=== PATIENT | male | born 1935 | race Caucasian/White ===

== ENCOUNTER 2017-06-07 00:30 | Emergency (ER) | payer MEDICARE ==
[2017-06-07] MEDS ORDERED: Aspirin Low Dose CHEW TAB* 81 MG PO ONE (00:49)
[2017-06-07 01:24] LABS: Hematocrit 46 % (42-52); Hemoglobin 15.8 g/dl (14.0-18.0); Mean Corpuscular HGB Conc 34 g/dl (31-36); Mean Corpuscular Hemoglobin 33 pg (27-31); Mean Corpuscular Volume 96 fL (80-94); Mean Platelet Volume 8 um3 (7.4-10.4); Red Blood Count 4.83 10^6/ul (4.0-5.4); Red Cell Distribution Width 13 % (10.5-15); White Blood Count 6.3 10^3/ul (3.5-10.8)
[2017-06-07 01:31] LABS: Albumin 4.1 g/dL (3.2-5.2); BUN/Creatinine Ratio 19.1 (8-20); EGFR African American 64.4 (>60); Globulin 3.2 g/dL (2-4); Potassium 4.5 mmol/L (3.5-5.0); Total Bilirubin 0.7 mg/dL (0.2-1.0); Total Protein 7.3 g/dL (6.4-8.9)
[2017-06-07 01:35] LABS: Troponin I 0.01 ng/mL (<0.04)
[2017-06-07] MEDS ORDERED: Pantoprazole IV* 40 MG IV ONE (03:12)
[2017-06-07 04:43] VITALS: BP 129/79
--- NOTE | 2017-06-07 07:52 | RAD ---
INDICATION: Chest pain COMPARISON: Chest x-ray June 15, 2015 TECHNIQUE: An AP portable view obtained at 0111 hours is submitted. FINDINGS: Bones/Soft Tissues: There are no acute bony findings. Cardiomediastinal: The cardiomediastinal silhouette is normal. Lungs: There is minor linear change left lung base most consistent with scarring or atelectasis. Suggest follow-up as indicated.. Pleura: There are no pleural effusions. Other: None IMPRESSION: MINOR LINEAR CHANGE LEFT LUNG BASE LIKELY ATELECTASIS OR SCARRING
--- NOTE | 2017-06-07 14:32 | ED ---
Josie Almanza Rebecca, scribed for Mare Burroughs MD on 06/07/17 at 0227 . HPI Chest Pain - HPI Summary HPI Summary: Pt is an 81 y/o M who presents to ED c/o CP. Pain began 4 days ago (Saturday) and has been intermittent since onset with the most recent bout beginning tonight at 1700 shortly after finishing eating. Upon triage, pain was moderate, ranked 6 /10 and had been constant since onset. Upon evaluation, the pain has completely resolved with the only treatment being ASA. Pain has been midsternal without radiation. Pt repotrs an increase in belching. Denies abdominal pain. PSHx cardiac catheterizing without further intervention several years ago. PMHx GERD - previously was on omeprazole, but for the past week the pt has been taking Ranitidine 150 mg BID. Current sx are similar to prior instances of GERD. No PMHx MT. 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 Is on Coumadin due to PMHx DVT because he was on it before, taken off and they returned. Takes 5 mg Proscar, Atorvastatin 20 mg, Warfarin 6 mg, Tansulosin and ranitidine. - History of Current Complaint Chief Complaint: EDChestPainROMI Time Seen by Provider: 06/07/17 00:49 Hx Obtained From: Patient Onset/Duration: Started Days Ago - 4 days, Still Present, Worse Since - 1700 Time of Onset: 17:00 Timing: Intermittent Initial Severity: Moderate - 6/10 Current Severity: None Pain Intensity: 0 Pain Scale Used: 0-10 Numeric Chest Pain Location: Mid Sternal Aggravating Factor(s): Nothing Alleviating Factor(s): Other: - ASA Associated Signs and Symptoms: Negative: Abdominal Pain - Allergy/Home Medications Allergies/Adverse Reactions: Allergies Allergy/AdvReac Type Severity Reaction Status Date / Time No Known Allergies Allergy Verified 06/07/17 00:35 Home Medications: Home Medications Finasteride TAB* [Proscar TAB*] 5 mg PO DAILY 06/07/17 [History Confirmed ] Ranitidine HCl [Eql Heartburn Relief Maxi] 150 mg PO BID 06/07/17 [History Confirmed 06/07/17] Warfarin TAB(*) [Coumadin TAB(*)] 1 mg PO SEE INSTRUCTIONS 06/07/17 [History Confirmed 06/07/17] PMH/Surg Hx/FS Hx/Imm Hx Cardiovascular History: Reports: Hx Deep Vein Thrombosis GI History: Reports: Hx Gastroesophageal Reflux Disease - Surgical History Surgery Procedure, Year, and Place: Herniorrhaphies Infectious Disease History: No Infectious Disease History: Reports: Hx Shingles Denies: Traveled Outside the [place] in Last 30 Days - Family History Known Family History: Positive: Cardiac Disease - Father - Social History Alcohol Use: None Substance Use Type: Reports: None Smoking Status (MU): Never Smoked Tobacco Review of Systems Positive: Chest Pain Positive: Other - Belching. Negative: Abdominal Pain Physical Exam Triage Information Reviewed: Yes Vital Signs On Initial Exam: Initial Vitals Temp Pulse Resp BP Pulse Ox 97.4 F 84 14 165/96 94 06/07/17 00:31 06/07/17 00:31 06/07/17 00:31 06/07/17 00:31 06/07/17 00:31 Vital Signs Reviewed: Yes Appearance: Positive: No Pain Distress, Well-Nourished, Ill-Appearing - Mildly Skin: Positive: Warm, Skin Color Reflects Adequate Perfusion Head/Face: Positive: Normal Head/Face Inspection Eyes: Positive: Conjunctiva Clear ENT: Positive: Normal ENT inspection Neck: Positive: Supple Respiratory/Lung Sounds: Positive: Clear to Auscultation, Breath Sounds Present , Other - No respiratory distress Cardiovascular: Positive: RRR, Pulses are Symmetrical in both Upper and Lower Extremities, Other - Brisk capillary refill. Negative: Murmur Abdomen Description: Positive: Nontender, Soft, Other: - Belching Bowel Sounds: Positive: Present Musculoskeletal: Positive: Strength/ROM Intact Neurological: Positive: Sensory/Motor Intact, Alert, Oriented to Person Place, Time, Facial Symmetry, Speech Normal Psychiatric: Positive: Normal - Jerman Coma Scale Coma Scale Total: 15 Diagnostics - Vital Signs Vital Signs Temp Pulse Resp BP Pulse Ox 06/07/17 01:11 93 06/07/17 00:31 97.4 F 84 14 165/96 94 - Laboratory Lab Results: Lab Results 06/07/17 06/07/17 06/07/17 Range/Units 01:05 01:05 01:05 WBC 6.3 (3.5-10.8) 10^3/ul RBC 4.83 (4.0-5.4) 10^6/ul Hgb 15.8 (14.0-18.0) g/dl Hct 46 (42-52) % MCV 96 H (80-94) fL MCH 33 H (27-31) pg MCHC 34 (31-36) g/dl RDW 13 (10.5-15) % Plt Count 166 (150-450) 10^3/ul MPV 8 (7.4-10.4) um3 Neut % (Auto) 57.9 (38-83) % Lymph % (Auto) 27.6 (25-47) % Sauk % (Auto) 9.0 (1-9) % Eos % (Auto) 4.6 (0-6) % Baso % (Auto) 0.9 (0-2) % Absolute Neuts (auto) 3.6 (1.5-7.7) 10^3/ul Absolute Lymphs (auto) 1.7 (1.0-4.8) 10^3/ul Absolute Monos (auto) 0.6 (0-0.8) 10^3/ul Absolute Eos (auto) 0.3 (0-0.6) 10^3/ul Absolute Basos (auto) 0.1 (0-0.2) 10^3/ul Absolute Nucleated RBC 0.01 10^3/ul Nucleated RBC % 0.1 INR (Anticoag Therapy) (0.89-1.11) APTT (26.0-36.3) seconds Sodium 136 (133-145) mmol/L Potassium 4.5 (3.5-5.0) mmol/L Chloride 101 (101-111) mmol/L Carbon Dioxide 28 (22-32) mmol/L Anion Gap 7 (2-11) mmol/L BUN 26 H (6-24) mg/dL Creatinine 1.36 H (0.67-1.17) mg/dL Est GFR ( Amer) 64.4 (>60) Est GFR (Non-Af Amer) 50.0 (>60) BUN/Creatinine Ratio 19.1 (8-20) Glucose 106 H (70-100) mg/dL Lactic Acid (0.5-2.0) mmol/L Calcium 9.0 (8.6-10.3) mg/dL Magnesium 2.0 (1.9-2.7) mg/dL Total Bilirubin 0.70 (0.2-1.0) mg/dL AST 20 (13-39) U/L ALT 16 (7-52) U/L Alkaline Phosphatase 132 H (34-104) U/L Total Creatine Kinase 68 (10-223) U/L CK-MB (CK-2) 1.7 (0.6-6.3) ng/mL Troponin I 0.01 (<0.04) ng/mL B-Natriuretic Peptide 38 ( - 100) pg/mL Total Protein 7.3 (6.4-8.9) g/dL Albumin 4.1 (3.2-5.2) g/dL Globulin 3.2 (2-4) g/dL Albumin/Globulin Ratio 1.3 (1-3) 06/07/17 06/07/17 Range/Units 01:05 01:05 WBC (3.5-10.8) 10^3/ul RBC (4.0-5.4) 10^6/ul Hgb (14.0-18.0) g/dl Hct (42-52) % MCV (80-94) fL MCH (27-31) pg MCHC (31-36) g/dl RDW (10.5-15) % Plt Count (150-450) 10^3/ul MPV (7.4-10.4) um3 Neut % (Auto) (38-83) % Lymph % (Auto) (25-47) % Sauk % (Auto) (1-9) % Eos % (Auto) (0-6) % Baso % (Auto) (0-2) % Absolute Neuts (auto) (1.5-7.7) 10^3/ul Absolute Lymphs (auto) (1.0-4.8) 10^3/ul Absolute Monos (auto) (0-0.8) 10^3/ul Absolute Eos (auto) (0-0.6) 10^3/ul Absolute Basos (auto) (0-0.2) 10^3/ul Absolute Nucleated RBC 10^3/ul Nucleated RBC % INR (Anticoag Therapy) 2.52 H (0.89-1.11) APTT 41.5 H (26.0-36.3) seconds Sodium (133-145) mmol/L Potassium (3.5-5.0) mmol/L Chloride (101-111) mmol/L Carbon Dioxide (22-32) mmol/L Anion Gap (2-11) mmol/L BUN (6-24) mg/dL Creatinine (0.67-1.17) mg/dL Est GFR ( Amer) (>60) Est GFR (Non-Af Amer) (>60) BUN/Creatinine Ratio (8-20) Glucose (70-100) mg/dL Lactic Acid 1.0 (0.5-2.0) mmol/L Calcium (8.6-10.3) mg/dL Magnesium (1.9-2.7) mg/dL Total Bilirubin (0.2-1.0) mg/dL AST (13-39) U/L ALT (7-52) U/L Alkaline Phosphatase (34-104) U/L Total Creatine Kinase (10-223) U/L CK-MB (CK-2) (0.6-6.3) ng/mL Troponin I (<0.04) ng/mL B-Natriuretic Peptide ( - 100) pg/mL Total Protein (6.4-8.9) g/dL Albumin (3.2-5.2) g/dL Globulin (2-4) g/dL Albumin/Globulin Ratio (1-3) Result Diagrams: 06/07/17 01:05 06/07/17 01:05 Lab Statement: Any lab studies that have been ordered have been reviewed, and results considered in the medical decision making process. - Radiology CXR Xray Interpretation: No Acute Changes - NAD Radiology Interpretation Completed By: ED Physician - EKG 0050 Cardiac Rate: NL - 69 bpm Ectopy: PVCs - one EKG Interpretation: Sinus arrhythmia, nl AV/IV CT, nl QTC, nl axis Re-Evaluation - Re-Evaluation First Eval Re-Evaluation Time: 04:28 Comment: Has been getting intermittent, short instances of pain. Second Eval Re-Evaluation Time: 04:35 Comment: Explaining results to the daughter of the pt, including negative troponin and EKG results. Discussed the medications the pt received in the ED as well as the need for a stress test but not urgently. Chest Pain Course/Dx - Course Assessment/Plan: Pt is an 81 y/o M who presents to ED c/o CP. Pain began 4 days ago (Saturday) and has been intermittent since onset with the most recent bout beginning tonight at 1700 shortly after finishing eating. Upon triage, pain was moderate, ranked 6/10 and had been constant since onset. Upon evaluation, the pain has completely resolved with the only treatment being ASA. Pain has been midsternal without radiation. Pt repotrs an increase in belching. Denies abdominal pain. PSHx cardiac catheterizing without further intervention several years ago. PMHx GERD - previously was on omeprazole, but for the past week the pt has been taking Ranitidine 150 mg BID. Current sx are similar to prior instances of GERD. No PMHx MT. 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 Is on Coumadin due to PMHx DVT because he was on it before, taken off and they returned. Takes 5 mg Proscar, Atorvastatin 20 mg, Warfarin 6 mg, Tansulosin and ranitidine. CXR reveals no acute findings. EKG is sinus arrythmia. In the ED course, pt received ASA and protonix. Both troponins of 0.01. Discussed care of pt with Dr. Lucero who stated that is the repeat troponin and D-Dimer are negative, the pt can be D/C to home for outpatient follow up. Patient medications reviewed. Elevated BP noted. - Diagnoses Provider Diagnoses: GERD (gastroesophageal reflux disease), Chest pain, Elevated BP without diagnosis of hypertension - Provider Notifications Discussed Care Of Patient With: Paul Lucero Time Discussed With Above Provider: 03:25 Instructed by Provider To: Other - If the second troponin and D-Dimer are negative, the pt can be D/C to home to have a stress test done soon as an outpatient. Discharge - Discharge Plan Condition: Stable Disposition: HOME Patient Education Materials: Gastroesophageal Reflux Disease (ED), Chest Pain ( ED) Referrals: Eduardo Rojas MD [Primary Care Provider] - Fabricio Johnson DO [Medical Doctor] - Additional Instructions: We gave 1 dose of Protonix 40 mg IV and we gave a copy of labs. 2 troponins and D-Dimer were both negative. Continue with usual medications. The documentation as recorded by the Josie denson Rebecca accurately reflects the service I personally performed and the decisions made by Manjeet cantu Barbara J, MD.
== END 2017-06-07 04:50 | disposition home or self-care (01) ==
LOC: ED 00:30
DX: R07.9 Chest pain, unspecified (principal); K21.9 Gastro-esophageal reflux disease without esophagitis; R03.0 Elevated blood-pressure reading, without diagnosis of hypertension
CPT/HCPCS: 36415; 71010; 80053; 82550; 82553; 83605; 83735; 83880; 84484; 85025; 85379; 85610; 85730; 93005; 96374; 99283; A9270-GY

== ENCOUNTER 2018-03-31 12:51 | Emergency (ER) | payer OTHER ==
[2018-03-31 13:05] VITALS: BP 139/81
--- NOTE | 2018-03-31 13:46 | UC ---
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 He states that he has an extremely low energy level and feels like falling asleep. He has had 3- 5 episodes of diarrhea day for the past 10 days. Denies any nausea vomiting or abdominal pain. He has had no fever or chills. He has had no chest pain or shortness of breath. His remarks that he has not been his normal self and generally refuses to see doctors. He is currently on Coumadin for DVTs. - History of Current Complaint Chief Complaint: UCGeneralIllness Stated Complaint: NOT FEELING RIGHT Time Seen by Provider: 03/31/18 13:15 Hx Obtained From: Patient Onset/Duration: Gradual Onset, Lasting Days - 10 Timing: Constant Severity Initially: Mild Severity Currently: Moderate Pain Intensity: 0 Pain Scale Used: 0-10 Numeric Associated Signs And Symptoms: Positive: Diarrhea. Negative: Diaphoresis, Fever , Cough, Chest Pain, Dizzy, Back Pain, Constipation, Blood in Stool, Urinary Symptoms, Decreased Appetite, Nausea, Vomiting, Penile Discharge - Allergies/Home Medications Allergies/Adverse Reactions: Allergies Allergy/AdvReac Type Severity Reaction Status Date / Time No Known Allergies Allergy Verified 03/31/18 12:59 Home Medications: Home Medications Omeprazole CAP* [Prilosec CAP* 20 MG] 1 cap DAILY 03/31/18 [History Confirmed ] PMH/Surg Hx/FS Hx/Imm Hx Previously Healthy: Yes Endocrine History: Dyslipidemia Cardiovascular History: Hypertension, Deep Vein Thrombosis - Surgical History Surgical History: Yes Surgery Procedure, Year, and Place: Herniorrhaphies - Family History Known Family History: Positive: Cardiac Disease - Father - Social History Alcohol Use: None Substance Use Type: None Smoking Status (MU): Never Smoked Tobacco - Immunization History Most Recent Influenza Vaccination: Not the 2014/2015 Season Review of Systems Constitutional: Fatigue Skin: Negative Eyes: Negative ENT: Negative Respiratory: Negative Cardiovascular: Negative Gastrointestinal: Diarrhea Genitourinary: Negative Motor: Negative Neurovascular: Negative Musculoskeletal: Negative Neurological: Negative Psychological: Negative Is Patient Immunocompromised?: No All Other Systems Reviewed And Are Negative: Yes Physical Exam Triage Information Reviewed: Yes Appearance: Well-Appearing, No Pain Distress, Well-Nourished Vital Signs: Initial Vital Signs Temp 97.7 F 03/31/18 13:00 Pulse 93 03/31/18 13:00 Resp 20 03/31/18 13:00 BP 139/81 03/31/18 13:00 Pulse Ox 97 03/31/18 13:00 Vital Signs Reviewed: Yes Eyes: Positive: Conjunctiva Clear ENT: Positive: Hearing grossly normal. Negative: Nasal congestion, Nasal drainage, Trismus, Muffled voice, Hoarse voice Neck: Positive: Supple, Nontender, No Lymphadenopathy Respiratory: Positive: Lungs clear, Normal breath sounds, No respiratory distress, No accessory muscle use Cardiovascular: Positive: RRR, No Murmur Abdomen Description: Positive: Nontender, No Organomegaly, Soft. Negative: Bruit, CVA Tenderness (R), CVA Tenderness (L), Distended, Guarding Bowel Sounds: Positive: Present Musculoskeletal: Positive: ROM Intact, No Edema Neurological: Positive: Alert Psychological Exam: Normal Skin Exam: Normal Diagnostics - Laboratory Diagnostic Studies Completed/Ordered: ua-no glucose - EKG Cardiac Rate: NL Cardiac Rhythm: Sinus: Normal Ectopy: PVCs ST Segment: Normal Abd Pain Male Course/Dx - Course Course Of Treatment: D/W Dr. Guillory [facility]. accepts patient. declines EMS transfer - Differential Dx/Clinical Impression Provider Diagnoses: fatige/diarrhea Discharge - Sign-Out/Discharge Documenting (check all that apply): Patient Departure - Discharge Plan Condition: Stable Disposition: TRANS HIGHER LVL OF CARE FAC Referrals: Eduardo Rojas MD [Primary Care Provider] - Additional Instructions: I suggest you go to the [facility] ER for further investigation of your symptoms I spoke to Pastora Wilkerson and they are expecting you - Billing Disposition and Condition Condition: STABLE Disposition: Trans Higher Lvl of Care Fac
== END 2018-03-31 13:46 | disposition short-term general hospital (02) ==
LOC: UCCORT 12:51
DX: R19.7 Diarrhea, unspecified (principal); R53.83 Other fatigue; I10 Essential (primary) hypertension; Z86.718 Personal history of other venous thrombosis and embolism
CPT/HCPCS: 81003; 93005; 99212; G0463

== ENCOUNTER 2018-04-12 09:01 | Emergency (ER) | payer MEDICARE, OTHER ==
--- NOTE | 2018-04-12 10:33 | ED ---
GI/ HPI - HPI Summary HPI Summary: This patient is an 82 year old M presenting to [facility] accompanied by family with a chief complaint of watery diarrhea that began one month ago. The patient rates the pain 0/10 in severity. Symptoms aggravated by nothing. Symptoms were not alleviated by Imodium. Patient reports occasional suprapubic abd pain. Patient denies urinary symptoms, changes in appetite, nausea, and vomiting. Patient denies recent travel or antibiotics. Patient reports having similar symptoms previously in July 2017, but those symptoms resolved with Imodium. - History of Current Complaint Chief Complaint: EDNauseaVomitDiarrh Time Seen by Provider: 04/12/18 09:30 Stated Complaint: DIARRHEA Hx Obtained From: Patient Onset/Duration: Started Weeks Ago, Atraumatic, Still Present Timing: Constant Severity: Mild Current Severity: Mild Pain Intensity: 0 Location of Pain: Suprapubic Associated Signs and Symptoms: Positive: Other: - Positive occasional suprapubic abd pain. Negative urinary symptoms, changes in appetite, nausea, and vomiting Aggravating Factor(s): Nothing Alleviating Factor(s): Nothing - Allergy/Home Medications Allergies/Adverse Reactions: Allergies Allergy/AdvReac Type Severity Reaction Status Date / Time No Known Allergies Allergy Verified 04/12/18 09:07 PMH/Surg Hx/FS Hx/Imm Hx Previously Healthy: No Cardiovascular History: Reports: Hx Deep Vein Thrombosis, Hx Hypercholesterolemia GI History: Reports: Hx Gastroesophageal Reflux Disease - Surgical History Surgery Procedure, Year, and Place: Herniorrhaphies Infectious Disease History: No Infectious Disease History: Reports: Hx Shingles Denies: Traveled Outside the [place] in Last 30 Days - Family History Known Family History: Positive: Cardiac Disease - Father - Social History Occupation: Retired Lives: With Family Alcohol Use: None Hx Substance Use: No Substance Use Type: Reports: None Hx Tobacco Use: No Smoking Status (MU): Never Smoked Tobacco Review of Systems Positive: Abdominal Pain, Diarrhea, Other - Negative changes in appetite. Negative: Vomiting, Nausea Positive: no symptoms reported All Other Systems Reviewed And Are Negative: Yes Physical Exam - Summary Physical Exam Summary: VITAL SIGNS: Reviewed. GENERAL: Patient is a well-developed and nourished male who is lying comfortable in the stretcher. Patient is not in any acute respiratory distress. HEAD AND FACE: Normocephalic and atraumatic. EYES: PERRLA, EOMI x 2, No injected conjunctiva. EARS: Hearing grossly intact. Ear canals and tympanic membranes are WNL. MOUTH: Oropharynx within normal limits. NECK: Supple, trachea is midline, no adenopathy, no JVD. CHEST: Symmetric, no tenderness at palpation LUNGS: Clear to auscultation bilaterally. No wheezing or crackles. CVS: RRR, S1 and S2 present, no murmurs or gallops appreciated. ABDOMEN: Soft, non-tender. No signs of distention. Positive bowel sounds. No rebound no guarding, and no masses palpated. No abdominal bruit or pulsations. EXTREMITIES: FROM in all major joints, no edema, no cyanosis or clubbing. NEURO: Alert and oriented x 3. No acute neurological deficits. Speech is normal. SKIN: Dry and warm Triage Information Reviewed: Yes Vital Signs On Initial Exam: Initial Vitals Temp Pulse Resp BP Pulse Ox 97.0 F 90 14 140/78 96 04/12/18 09:03 04/12/18 09:03 04/12/18 09:03 04/12/18 09:03 04/12/18 09:03 Vital Signs Reviewed: Yes Diagnostics - Vital Signs Vital Signs Temp Pulse Resp BP Pulse Ox 04/12/18 09:03 97.0 F 90 14 140/78 96 - Laboratory Result Diagrams: 04/12/18 11:10 04/12/18 11:10 Lab Statement: Any lab studies that have been ordered have been reviewed, and results considered in the medical decision making process. - Radiology Abdomen XR Radiology Interpretation Completed By: Radiologist - Abdomen XR reveals, per radiologist, no evidence for acute finding. ED physician has reviewed this radiology report. - EKG 1113 Cardiac Rate: NL EKG Rhythm: Sinus Rhythm - 63 BPM EKG Interpretation: No ST elevation. Similar to EKG taken on 03/31/2018 G[facility]U Course/Dx - Course Assessment/Plan: Consult with Rick from microbiology and he reports that he has run the sample for C diff twice, and the machine keeps rejecting and giving inconclusive results. The patient will take stool kit to bring back to microbiology because he does not want to wait any longer. The patient wishes to be discharged. He has appointment with GI on 04/17/2018. . This patient is an 82-year-old male who presents to the emergency department with a chief complaint of having watery diarrhea for approximately one month. Patient reports that he has been taking [id number] medications Imodium with improvement of symptoms. Blood test results without any significant abnormality except for chloride 112, alkaline phosphatase of 148, urinalysis is negative for UTI however the urine is contaminated. C. diff was inconclusive. The tech from the laboratory reported that he wants the test twice and he was inconclusive. I explained to the patient the need for another sample but the patient was unable to give another stool sample. He requested to get a kit for stool samples and he will be bring the sample back as soon as he can. He also reports that he has an appointment with GI on and he would like to go home and follow up with them. Patient is hemodynamically stable alert oriented 3. I discussed all the findings and test results with the patient. Patient was instructed to return to the emergency room immediately if any of the symptoms return or worsens. Plan of care was discussed with the patient and understands and agrees. All questions were answered at patient satisfaction. There were no further complaints or concerns. Lung exam before discharge: CTA B /L. Good air exchange. No wheezing or crackles heard. CVS: S1 and S2 present. No murmurs appreciated. Patient is alert and oriented x 3. Patient is hemodynamically stable. Patient will be discharged home with follow up PCP in the next 2-3 days - Diagnoses Differential Diagnoses - Male: Diarrhea, Gastroenteritis (Bacterial), Gastroenteritis (Viral) Provider Diagnoses: Diarrhea - Physician Notifications Instructed by Provider To: Other - Consult with Rick from microbiology and he reports that he has run the sample for C diff twice; and the machine keeps rejecting and giving inconclusive results. Discharge - Sign-Out/Discharge Documenting (check all that apply): Patient Departure - Discharge home - Discharge Plan Condition: Stable Disposition: HOME Patient Education Materials: Acute Diarrhea (ED) Referrals: Eduardo Rojas MD [Primary Care Provider] - 2 Days Additional Instructions: RETURN TO THE EMERGENCY DEPARTMENT FOR NEW OR WORSENING SYMPTOMS - Billing Disposition and Condition Condition: STABLE Disposition: Home Attestations Scribe Attestation: This is jarett Morris documenting for attending Leonides Benson MD. User Type: Provider with Scribe Provider Attestation: The documentation recorded by the scribe accurately reflects the service I personally performed and the decisions made by me.
[2018-04-12] MEDS ORDERED: NS 0.9% 1000 ML* 1,000 ML IV ONE (10:34)
--- NOTE | 2018-04-12 10:58 | RAD ---
INDICATION: Diarrhea. COMPARISON: There are no prior studies available for comparison. TECHNIQUE: Supine and upright views of the abdomen were obtained. FINDINGS: The small bowel and colon appear nondistended. No free intraperitoneal air is seen. There is a mild lumbar scoliosis convex toward the left side and moderate diffuse degenerative disc disease. 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 There are nonspecific calcifications which project over the right upper quadrant. IMPRESSION: NO EVIDENCE FOR ACUTE FINDING.
[2018-04-12 11:25] LABS: ABS Basophils 0.1 10^3/ul (0-0.2); ABS Eosinophils 0.1 10^3/ul (0-0.6); ABS Monocytes 0.4 10^3/ul (0-0.8); ABS Neutrophils 4.5 10^3/ul (1.5-7.7); ABS Nucleated RBC 0 10^3/ul; Eosinophil % 1.3 % (0-6); Hematocrit 43 % (42-52); Hemoglobin 14.8 g/dl (14.0-18.0); Lymphocyte % 15.8 % (25-47); Mean Corpuscular HGB Conc 34 g/dl (31-36); Mean Corpuscular Hemoglobin 33 pg (27-31); Mean Corpuscular Volume 95 fL (80-94); Mean Platelet Volume 7.7 um3 (7.4-10.4); Nucleated Red Blood Cells % 0.1; Platelet Count 162 10^3/ul (150-450); Red Blood Count 4.53 10^6/ul (4.00-5.40); Red Cell Distribution Width 13 % (10.5-15)
[2018-04-12 11:39] LABS: EGFR Non-African American 69.6 (>60)
[2018-04-12 13:16] LABS: Urine Appearance Cloudy; Urine Blood 1+ (Negative); Urine Color Yellow; Urine Ketones Negative (Negative); Urine Protein Negative (Negative); Urine Red Blood Cell 1+(3-5/hpf) (Absent); Urine Specific Gravity 1.013 (1.010-1.030); Urine Urobilinogen Negative (Negative); Urine White Blood Cell Trace(0-5/hpf) (Absent)
[2018-04-12 17:42] VITALS: BP 139/78
--- NOTE | 2018-04-13 07:24 | ED ---
Progress - Progress Note Progress Note: Patient's stool culture reveals kenney, non-formed, mucoid stool and positive fecal lactoferrin by immunoassay. He was seen with complaints of diarrhea 1 month and concern for C. difficile however micro-machine was reporting "inconclusive" after 2 tests were run here that day. Patient advised to provide a third sample to be run on a different day when machine can be fixed. Patient was discharged in stable condition and reported he had a appt with GI on 04/[address] Course/Dx - Diagnoses Provider Diagnoses: Diarrhea - Provider Notifications Instructed by Provider To: Other - Consult with Rick from microbiology and he reports that he has run the sample for C diff twice; and the machine keeps rejecting and giving inconclusive results. Discharge - Sign-Out/Discharge Documenting (check all that apply): Post-Discharge Follow Up - Discharge Plan Condition: Stable Disposition: HOME Patient Education Materials: Acute Diarrhea (ED) Referrals: Eduardo Rojas MD [Primary Care Provider] - 2 Days Additional Instructions: RETURN TO THE EMERGENCY DEPARTMENT FOR NEW OR WORSENING SYMPTOMS - Billing Disposition and Condition Condition: STABLE Disposition: Home
== END 2018-04-12 17:41 | disposition home or self-care (01) ==
LOC: ED 09:01
DX: R19.7 Diarrhea, unspecified (principal)
CPT/HCPCS: 36415; 74019; 80053; 81003; 81015; 82150; 82272; 83605; 83630; 83690; 85025; 86140; 87086; 93005; 96360; 99283